=== PATIENT | female | born 1955 | race Caucasian/White ===

== ENCOUNTER 2020-07-01 12:27 | Outpatient (CLI) | payer MEDICARE, OTHER ==
[2020-07-01 13:00] LABS: Estimated GFR-MDRD - POC Greater than 90
[2020-07-01] MEDS ORDERED: Iopamidol-370 76% 500 ML 1 ML ONE (14:37)
--- NOTE | 2020-07-01 15:26 | CT ---
NECK CT WITH IV CONTRAST 07/01/20 HISTORY: Left sided vocal cord paralysis. TECHNIQUE: Axial CT imaging at 3 mm intervals from the skull base through the lung apices with IV contrast. Rogerio nal and sagittal reformatted imaging obtained. FINDINGS: There is an irregular lobulated soft tissue mass within the medial aspect of the left lung apex which measures approximately 4 cm craniocaudal dimension, 3 cm transverse dimension, and 3.2 cm in AP dime nsion. This abuts the superior aspect of the mediastinum on the left, and close proximity to the post erior aspects of the proximal left subclavian artery. In addition, there is an incompletely imaged i ll-defined infiltrating mass within the AP window. This lesion is in close proximity to the left main stem bronchus which is incompletely imaged. There is associated narrowing of the left main pulmonary artery. Partially visualized 1 cm lymph node seen anterior to the right main stem bronchus. Findings are highly concerning for bronchogenic carcinoma with metastatic disease within the mediastinum. Warren mmend further assessment with dedicated chest CT. The visualized paranasal sinuses and mastoid air cells demonstrate probable mucosal thickening of the alveolar recess right maxillary sinus. Retroantral fat, parapharyngeal fat, submandibular glands and parotid glands are unremarkable. Tonsillar pillars, epiglottis and pre-epiglottic fat, hyoid bone, t hyroid cartilage, cricoid cartilage appear unremarkable. Multiple tiny hypodensities are noted within the thyroid gland bilaterally. There is a medialized vocal cord on the left consistent with the patient's history of left sided foca l cord paralysis. There is an enlarged lymph node posterior to the head of the clavicle on the left measuring 1.4 cm sinclair spicious for metastatic lymphadenopathy. An expansile lytic lesion is seen involving the anterolateral aspect of the right second rib, only pa rtially visualized on this exam, measuring at least 2.7 cm in craniocaudal dimension. Irregular mass in the AP window measures approximately 2.1 x 3.2 cm. IMPRESSION: CT evidence of left vocal cord paralysis. Irregular soft tissue mass within the left upper lobe/left lung apex extending into the region of the left hilum highly suspicious for bronchogenic carcinoma. L ymphadenopathy posterior to the head of the left clavicle as well as mediastinal adenopathy suggests metastatic disease, most prominent in the AP window explaining the left vocal cord paralysis. There i s also evidence of osseous metastatic disease involving the right second rib. These results were sent to Dr. Barrington Paz via [employer], 1:45 p.m. on 07/01/20. Code TATI and Code T
== END 2020-07-01 12:28 | disposition home or self-care (01) ==
LOC: BICCT 12:27
PROVIDERS: ATTEND Otolaryngology Plastic Surgery within the Head & Neck
DX: J38.00 Paralysis of vocal cords and larynx, unspecified (principal); J98.4 Other disorders of lung; R59.0 Localized enlarged lymph nodes
CPT/HCPCS: 70491; 82565; Q9967

== ENCOUNTER 2020-07-22 12:02 | Outpatient (CLI) | payer MEDICARE, OTHER ==
--- NOTE | 2020-07-22 15:13 | PET ---
EXAM: PET/CT HISTORY: Malignant neoplasm of the left upper lobe and left bronchus TECHNIQUE: PET scanning with CT attenuation correction was performed from the base of the brain to the proximal thighs following the intravenous administration of 12.5 millicuries [id number]. COMPARISON: CT neck soft tissues with contrast dated July 01, 2020 FINDINGS: Biodistribution:The biodistribution for the exam appears acceptable. Head and neck: There is appropriate background activity within the brain. There is a hypermetabolic l eft supraclavicular lymph node with a peak SUV uptake of 15.05. Thorax: There is a hypermetabolic spiculated mass within the left lung apex with a peak activity of 1 0.69. There is a hypermetabolic left suprahilar mass with a peak activity at 8.03. There is a hypermetabolic left hilar lymph node with a peak activity of 5.74. There is a left peribronchial lymp h node with a peak activity 9.03. There is an hypermetabolic AP window lymph node with a peak activity of 5.9. There is hypermetabolic activity seen involving the anterior and posterior pleura li tejas related to pleural-based metastatic disease. The most prominent area of increased hypermetabolic activity is seen posterior to the left lower lobe with a peak activity of 5.01. There is a hypermetabolic epicardial lymph node versus pleural-based metastatic lesion, adjacent to the left ventricular apex, with a peak activity of 5.37. There is subsegmental volume loss within the lef t lung largely related to the complex small left pleural effusion. No hypermetabolic pulmonary nodule or pleural effusion is evident within the right hemithorax. Abdomen and pelvis: There is expected background activity within the GI and systems. No hypermetab olic mass, lymphadenopathy or ascites is present. Osseous structures and skin: There is a large hypermetabolic lytic lesion involving the left iliac wi ng measuring 6.3 cm with a peak activity of 12.19. There is a small hypermetabolic lytic lesion involving the lateral cortex of the proximal right femur with a peak activity of 11.49. There are add itional hypermetabolic osseous metastatic lesions involving the left anterior fourth rib, left posterior fifth rib, right posterior ninth rib and lateral right second rib. Small hypermetabolic foc us is seen involving the anterior aspect of the right iliac crest with a peak activity of 5.07. IMPRESSION: Abnormal PET/CT 1. Hypermetabolic left upper lobe lung mass with an additional hypermetabolic mass seen within the le ft suprahilar region consistent with malignancy. There is hypermetabolic malignant lymphadenopathy seen within the left hilum, left peribronchial region, left AP window region and left supraclavicular region. There is hypermetabolic malignant pleural thickening consistent of the left hemithorax. 2. Hypermetabolic osseous metastatic disease involving the ribs, bilateral iliac wings and proximal r ight femur
== END 2020-07-22 12:03 | disposition home or self-care (01) ==
LOC: PET 12:02
PROVIDERS: ATTEND Thoracic Surgery (Cardiothoracic Vascular Surgery)
DX: C34.12 Malignant neoplasm of upper lobe, left bronchus or lung (principal); R91.8 Other nonspecific abnormal finding of lung field; R59.1 Generalized enlarged lymph nodes; C79.51 Secondary malignant neoplasm of bone
CPT/HCPCS: 78815; A9552

== ENCOUNTER 2020-07-26 13:29 | Outpatient (CLI) | payer MEDICARE, OTHER ==
[2020-07-26 19:06] LABS: Anion Gap 17 mmol/L (10-20); BUN (Urea Nitrogen) 13 mg/dL (9.8-20.1); Calc. Creatinine Clearance 0 mL/min (70-130); Calcium 9.8 mg/dL (7.8-10.44); Carbon Dioxide 21 mmol/L (23-31); Chloride 103 mmol/L (98-107); Glucose 141 mg/dL (80-115); Sodium 137 mmol/L (136-145)
[2020-07-26 19:42] LABS: Hemoglobin 12.4 g/dL (12.0-16.0); Mean Corpuscular HGB CONC 31.8 G/DL (32.0-36.0); Mean Corpuscular Hemoglobin 26.9 PG (27.0-33.0); Mean Corpuscular Volume 84.6 fl (80.0-100.0); Platelet Count 268 10x3/uL (130-400); Red Blood Cell (RBC) Count 4.61 10x6/uL (3.90-5.20); White Blood Cell (WBC) Count 10.2 10x3/uL (4.5-11.0)
[2020-07-27 09:48] LABS: SARS-CoV-2 MS2 Positive; SARS-CoV-2 N Gene Negative; SARS-CoV-2 S Gene Negative; SARS-CoV-2 by NAA Not Detected (NotDetected); SARS-CoV-2 orf1ab Negative
== END 2020-07-26 13:30 | disposition home or self-care (01) ==
LOC: LABBT 13:29
PROVIDERS: ATTEND Thoracic Surgery (Cardiothoracic Vascular Surgery)
DX: Z01.812 Encounter for preprocedural laboratory examination (principal); Z20.828 Contact with and (suspected) exposure to other viral communicable diseases; R91.8 Other nonspecific abnormal finding of lung field
CPT/HCPCS: 80048; 85027; U0003; 87635

== ENCOUNTER 2020-07-29 06:06 | Day surgery (SDC) | payer MEDICARE, OTHER ==
[2020-07-28 10:38] VITALS: BMI 32.3
[2020-07-29] MEDS ORDERED: Fentanyl 100 MCG/2 ML VIAL ONE ×2 (06:37→08:38)
[2020-07-29] MEDS ORDERED: Lidocaine 1% w/Epinephrine 1:100K 20 ML VIAL ONE (06:50)
[2020-07-29] MEDS ORDERED: Bupivacaine PF 0.5% 30 ML VIAL ONE (06:50)
[2020-07-29] MEDS ORDERED: Ondansetron PF 4 MG/2 ML Vial ONE ×2 (06:55→10:38)
[2020-07-29] MEDS ORDERED: Midazolam HCl 2 mg/2 ml Vial ONE (07:07)
[2020-07-29] MEDS ORDERED: HYDROcodone/Acetaminophen 5/325 mg Tablet ONE (09:08)
[2020-07-29] MEDS ORDERED: Dexamethasone 20 MG/5 ML VIAL ONE (10:38)
[2020-07-29] MEDS ORDERED: Ketorolac Tromethamine 30 MG/ML VIAL ONE (10:38)
[2020-07-29] MEDS ORDERED: PROPOFOL 200 MG/20 ML VIAL ONE (10:38)
[2020-07-29] MEDS ORDERED: Lidocaine 1% PF 5 ML VIAL ONE (10:38)
[2020-07-29] MEDS ORDERED: Succinylcholine 200 MG/10 ml SYRINGE FS ONE (10:38)
--- NOTE | 2020-08-02 11:48 | OP ---
DATE OF PROCEDURE: 07/29/2020 PREOPERATIVE DIAGNOSIS: Metastatic lung cancer. POSTOPERATIVE DIAGNOSIS: Metastatic lung cancer. PROCEDURE PERFORMED: Left deep scalene node excisional biopsy. ANESTHESIA: General. ESTIMATED BLOOD LOSS: Minimal. DESCRIPTION OF PROCEDURE: After adequate anesthesia had been obtained, a roll was placed under the shoulders and she was prepped and draped. Transverse incision was made above the clavicle and then dissection was carried down to the palpable mass. It was grasped and tissue dissected away from it coagulating small branches. Phrenic nerve was not specifically identified. The lymphatic drainage into the jugular vein was identified and avoided. Following removal of the mass, the platysma was reapproximated and the wound closed in layers and the patient was to be taken to the recovery room. Job ID: [id number]
== END 2020-07-29 10:05 | disposition home or self-care (01) ==
LOC: SDC 06:06
PROVIDERS: ATTEND Thoracic Surgery (Cardiothoracic Vascular Surgery)
PROC: 07B20ZX Excision of Left Neck Lymphatic, Open Approach, Diagnostic (ICD-10-PCS; principal; 2020-07-29)
DX: C34.12 Malignant neoplasm of upper lobe, left bronchus or lung (principal); C77.0 Secondary and unspecified malignant neoplasm of lymph nodes of head, face and neck; I10 Essential (primary) hypertension; Z79.899 Other long term (current) drug therapy
CPT/HCPCS: 81210; 81235; 81479; 88307; 88331; 88341; 88342; 88360; 88377; 93005; 93010; J0690; J1100; J1885; J2250; J2405; J2704; J3010; S0020

== ENCOUNTER 2021-12-21 11:32 | Inpatient (IN) | payer MEDICARE, OTHER ==
[2021-12-21] MEDS ORDERED: Ondansetron PF 4 MG/2 ML Vial ONE (12:30)
[2021-12-21 12:39] LABS: #Lymphocytes 0.9 thou/uL (1.20-3.40); #Monocytes 0.5 thou/uL (0.11-0.59); #Neutrophils 5.9 thou/uL (1.40-6.50); %Basophils 0.2 % (0.0-1.0); %Eosinophils 0.3 % (0.0-10.0); %Lymphocytes 12.4 % (21.0-51.0); %Monocytes 6.8 % (0.0-10.0); %Neutrophils 80.3 % (42.0-75.0); Hemoglobin 12.7 g/dL (12.0-16.0); Mean Corpuscular HGB CONC 33.7 g/dL (32.0-36.0); Mean Corpuscular Hemoglobin 30.8 pg (27.0-31.0); Mean Corpuscular Volume 91.3 fL (78.0-98.0); Mean Platelet Volume 7.3 fL (7.4-10.4); Platelet Count 292 thou/uL (130-400); RBC Distribution Width 15.5 % (11.5-14.5); Red Blood Cell (RBC) Count 4.13 mill/uL (4.20-5.40); White Blood Cell (WBC) Count 7.3 thou/uL (4.8-10.8)
[2021-12-21 13:08] LABS: ALT (SGPT) 20 U/L (8-55); AST (SGOT) 37 U/L (5-34); Albumin 3.7 g/dL (3.4-4.8); Alkaline Phosphatase 66 U/L (40-110); Anion Gap 14 mmol/L (10-20); BUN (Urea Nitrogen) 13 mg/dL (9.8-20.1); Bilirubin, Total 1.7 mg/dL (0.2-1.2); Calc. Creatinine Clearance 0 mL/min (70-130); Calcium 9.2 mg/dL (7.8-10.44); Carbon Dioxide 23 mmol/L (23-31); Chloride 84 mmol/L (98-107); Globulin 2.1 g/dL (2.4-3.5); Glucose 82 mg/dL (80-115); Potassium 4.4 mmol/L (3.5-5.1); Protein, Total 5.8 g/dL (5.8-8.1)
[2021-12-21 13:14] LABS: Sodium 117 mmol/L (136-145)
[2021-12-21] MEDS ORDERED: cefTRIAXone\\ROCEPHIN 1 GM VIAL ONE (14:04)
[2021-12-21] MEDS ORDERED: Morphine 4 MG/ML VIAL ONE (14:04)
[2021-12-21 14:36] LABS: Bacteria/HPF None Seen HPF (None Seen); Bilirubin Negative (Negative); Blood, Urine Negative (Negative); Clarity Clear (Clear); Glucose, Urine (Dipstick) Normal (Negative); Ketone, Urine 100 mg/dL (Negative); Leukocyte 250 Leu/uL (Negative); Nitrite Negative (Negative); Protein, Urine (Dipstick) 20 mg/dL (Neg-Trace); RBC/HPF 0-3 HPF (0-3); Specific Gravity, Urine 1.027 (1.002-1.036); Squamous Epithelial 0-3 HPF (0-3); Urobilinogen Normal mg/dL (Less than 2); WBC/HPF Greater than 50 HPF (0-3); pH, Urine 6.5 (5.0-9.0)
[2021-12-21] MEDS ORDERED: HYDROcodone/Acetaminophen 5/325 mg Tablet PO PRN (14:48)
[2021-12-21] MEDS ORDERED: Calcium Carbonate 500 MG ChewTAB PO PRN (14:48)
[2021-12-21] MEDS ORDERED: Acetaminophen 325 MG TAB PO PRN (14:48)
[2021-12-21] MEDS ORDERED: Ondansetron PF 4 MG/2 ML Vial IVP PRN (14:48)
[2021-12-21] MEDS ORDERED: hydrALAZINE 20 MG/ML VIAL SLOW IVP PRN (14:55)
[2021-12-21 15:21] VITALS: BMI 21.2
[2021-12-21 15:37] LABS: Lactic Acid 0.8 mmol/L (0.5-2.2)
[2021-12-21 15:39] LABS: Anion Gap 10 mmol/L (10-20); BUN (Urea Nitrogen) 12 mg/dL (9.8-20.1); Calc. Creatinine Clearance 71 mL/min (70-130); Calcium 7.9 mg/dL (7.8-10.44); Carbon Dioxide 25 mmol/L (23-31); Chloride 87 mmol/L (98-107); Glucose 81 mg/dL (80-115); Potassium 4.3 mmol/L (3.5-5.1)
[2021-12-21 15:50] LABS: Sodium 118 mmol/L (136-145)
[2021-12-21] MEDS ORDERED: Promethazine HCl 25 MG in Sodium Chloride 0.9% 50 ML IVPB PRN (15:59)
[2021-12-21 19:06] LABS: Anion Gap 10 mmol/L (10-20); BUN (Urea Nitrogen) 13 mg/dL (9.8-20.1); Calc. Creatinine Clearance 71 mL/min (70-130); Calcium 8.2 mg/dL (7.8-10.44); Carbon Dioxide 25 mmol/L (23-31); Chloride 87 mmol/L (98-107); Glucose 84 mg/dL (80-115); Potassium 4.4 mmol/L (3.5-5.1)
[2021-12-21 19:09] LABS: Sodium 118 mmol/L (136-145)
[2021-12-21 22:07] LABS: SARS-CoV-2 PCR by NAA Not Detected (NotDetected)
[2021-12-21] MEDS: ALPRAZolam 0.5 MG TAB PO SCH (23:20)
[2021-12-21 23:25] LABS: Anion Gap 13 mmol/L (10-20); BUN (Urea Nitrogen) 14 mg/dL (9.8-20.1); Calc. Creatinine Clearance 66 mL/min (70-130); Calcium 8.4 mg/dL (7.8-10.44); Carbon Dioxide 22 mmol/L (23-31); Chloride 88 mmol/L (98-107); Glucose 71 mg/dL (80-115); Potassium 4.4 mmol/L (3.5-5.1)
[2021-12-21 23:30] LABS: Sodium 119 mmol/L (136-145)
[2021-12-21 23:33] LABS: Potassium, Urine 70.1 mmol/L
[2021-12-22 03:29] LABS: #Lymphocytes 0.9 thou/uL (1.20-3.40); #Monocytes 0.5 thou/uL (0.11-0.59); #Neutrophils 3.7 thou/uL (1.40-6.50); %Basophils 0.1 % (0.0-1.0); %Eosinophils 0.5 % (0.0-10.0); %Lymphocytes 18.2 % (21.0-51.0); %Monocytes 9.4 % (0.0-10.0); %Neutrophils 71.8 % (42.0-75.0); Hemoglobin 12.3 g/dL (12.0-16.0); Mean Corpuscular HGB CONC 33.4 g/dL (32.0-36.0); Mean Corpuscular Hemoglobin 30.4 pg (27.0-31.0); Mean Corpuscular Volume 90.8 fL (78.0-98.0); Mean Platelet Volume 6.6 fL (7.4-10.4); Platelet Count 234 thou/uL (130-400); RBC Distribution Width 14.7 % (11.5-14.5); Red Blood Cell (RBC) Count 4.07 mill/uL (4.20-5.40); White Blood Cell (WBC) Count 5.1 thou/uL (4.8-10.8)
[2021-12-22 03:48] LABS: Anion Gap 9 mmol/L (10-20); BUN (Urea Nitrogen) 14 mg/dL (9.8-20.1); Calc. Creatinine Clearance 68 mL/min (70-130); Calcium 8.8 mg/dL (7.8-10.44); Carbon Dioxide 27 mmol/L (23-31); Chloride 92 mmol/L (98-107); Glucose 75 mg/dL (80-115); Potassium 4.4 mmol/L (3.5-5.1); Sodium 124 mmol/L (136-145)
[2021-12-22 07:50] LABS: Anion Gap 11 mmol/L (10-20); BUN (Urea Nitrogen) 12 mg/dL (9.8-20.1); Calc. Creatinine Clearance 66 mL/min (70-130); Calcium 8.4 mg/dL (7.8-10.44); Carbon Dioxide 24 mmol/L (23-31); Chloride 93 mmol/L (98-107); Glucose 78 mg/dL (80-115); Potassium 4.2 mmol/L (3.5-5.1); Sodium 124 mmol/L (136-145)
[2021-12-22] MEDS ORDERED: SELPERCATINIB PO SCH (09:00)
[2021-12-22] MEDS: Enoxaparin Sodium 40 MG/0.4 ML SYRINGE SC SCH (09:19)
[2021-12-22] MEDS ORDERED: Bisacodyl 10 MG SUPP PR SCH (12:00)
[2021-12-22] MEDS: cefTRIAXone\\ROCEPHIN 1 GM in Sodium Chloride 0.9% 100 ML IVPB SCH (13:57)
[2021-12-22 15:42] LABS: Anion Gap 11 mmol/L (10-20); BUN (Urea Nitrogen) 17 mg/dL (9.8-20.1); Calc. Creatinine Clearance 69 mL/min (70-130); Calcium 8.3 mg/dL (7.8-10.44); Carbon Dioxide 27 mmol/L (23-31); Chloride 93 mmol/L (98-107); Glucose 65 mg/dL (80-115); Potassium 4.2 mmol/L (3.5-5.1); Sodium 127 mmol/L (136-145)
[2021-12-22] MEDS: Senokot S 8.6-50 MG TAB PO SCH (16:28)
[2021-12-22] MEDS: ALPRAZolam 0.5 MG TAB PO SCH (20:23)
[2021-12-23 04:17] VITALS: BP 103/68; TEMP 97.7
[2021-12-23 08:29] LABS: Hemoglobin 12.2 g/dL (12.0-16.0); Mean Corpuscular Hemoglobin 30.1 pg (27.0-31.0); Mean Corpuscular Volume 93.9 fL (78.0-98.0); Mean Platelet Volume 6.9 fL (7.4-10.4); Platelet Count 210 thou/uL (130-400); RBC Distribution Width 14.8 % (11.5-14.5); Red Blood Cell (RBC) Count 4.04 mill/uL (4.20-5.40); White Blood Cell (WBC) Count 3.4 thou/uL (4.8-10.8)
[2021-12-23] MEDS: Enoxaparin Sodium 40 MG/0.4 ML SYRINGE SC SCH (08:29)
[2021-12-23] MEDS: Senokot S 8.6-50 MG TAB PO SCH (08:35)
[2021-12-23 08:43] LABS: Anion Gap 12 mmol/L (10-20); BUN (Urea Nitrogen) 13 mg/dL (9.8-20.1); Calc. Creatinine Clearance 73 mL/min (70-130); Calcium 8.5 mg/dL (7.8-10.44); Carbon Dioxide 24 mmol/L (23-31); Chloride 98 mmol/L (98-107); Glucose 80 mg/dL (80-115); Potassium 4.2 mmol/L (3.5-5.1); Sodium 130 mmol/L (136-145)
[2021-12-23 12:17] LABS: Band 10 % (5-11); Lymphocytes 32 % (21-51); MDiff Complete? YES; Monocytes 12 % (0-10); Neutrophil 46 % (42-75); RBC Morphology Normal
[2021-12-23] MEDS ORDERED: Potassium Chloride 20 MEQ TAB PO SCH (14:00)
[2021-12-23] MEDS: cefTRIAXone\\ROCEPHIN 1 GM in Sodium Chloride 0.9% 100 ML IVPB SCH (14:44)
== END 2021-12-23 14:26 | disposition home or self-care (01) | DRG 644 ==
LOC: ERS 11:32 → T4-B 14:32
PROVIDERS: ADMIT Internal Medicine; ATTEND Hospitalist
DX: E22.2 Syndrome of inappropriate secretion of antidiuretic hormone (principal); C34.90 Malignant neoplasm of unspecified part of unspecified bronchus or lung; Z20.822 Contact with and (suspected) exposure to COVID-19; K59.00 Constipation, unspecified; I10 Essential (primary) hypertension; R11.2 Nausea with vomiting, unspecified; T36.95XA Adverse effect of unspecified systemic antibiotic, initial encounter; Z79.899 Other long term (current) drug therapy; Z98.890 Other specified postprocedural states; Z82.49 Family history of ischemic heart disease and other diseases of the circulatory system; Z83.3 Family history of diabetes mellitus
CPT/HCPCS: 36415; 80048; 80053; 81003; 81015; 82436; 83605; 83930; 83935; 84133; 84300; 84443; 85025; 87086; 96361; 96374; 96375; J0696; J2270; J2405; J2550; J3490; U0003; U0005

== ENCOUNTER 2022-04-27 10:44 | Inpatient (IN) | payer MEDICARE, OTHER ==
[2022-04-27 11:33] LABS: #Lymphocytes 0.9 thou/uL (1.20-3.40); #Monocytes 0.4 thou/uL (0.11-0.59); #Neutrophils 6.7 thou/uL (1.40-6.50); %Basophils 0.2 % (0.0-1.0); %Eosinophils 0.2 % (0.0-10.0); %Lymphocytes 10.9 % (21.0-51.0); %Monocytes 4.9 % (0.0-10.0); %Neutrophils 83.8 % (42.0-75.0); Hemoglobin 11.4 g/dL (12.0-16.0); Mean Corpuscular HGB CONC 31.8 g/dL (32.0-36.0); Mean Corpuscular Hemoglobin 30.6 pg (27.0-31.0); Mean Corpuscular Volume 96.3 fL (78.0-98.0); Mean Platelet Volume 6.2 fL (7.4-10.4); Platelet Count 302 thou/uL (130-400); RBC Distribution Width 13.7 % (11.5-14.5); Red Blood Cell (RBC) Count 3.72 mill/uL (4.20-5.40)
[2022-04-27 11:56] LABS: ALT (SGPT) 15 U/L (8-55); AST (SGOT) 20 U/L (5-34); Albumin 2.8 g/dL (3.4-4.8); Alkaline Phosphatase 120 U/L (40-110); Anion Gap 13 mmol/L (10-20); BUN (Urea Nitrogen) 22 mg/dL (9.8-20.1); Bilirubin, Total 0.6 mg/dL (0.2-1.2); Calc. Creatinine Clearance 0 mL/min (70-130); Calcium 8.3 mg/dL (7.8-10.44); Carbon Dioxide 24 mmol/L (23-31); Chloride 102 mmol/L (98-107); Estimated GFR 78; Globulin 2.3 g/dL (2.4-3.5); Glucose 95 mg/dL (80-115); Protein, Total 5.1 g/dL (5.8-8.1); Sodium 135 mmol/L (136-145)
[2022-04-27 13:33] LABS: Bilirubin Negative (Negative); Blood, Urine 3+ (Negative); Clarity Extra Turbid (Clear); Glucose, Urine (Dipstick) Normal (Negative); Ketone, Urine Trace mg/dL (Negative); Leukocyte 500 Leu/uL (Negative); Nitrite Negative (Negative); Protein, Urine (Dipstick) 100 mg/dL (Neg-Trace); Urobilinogen Normal mg/dL (Less than 2); pH, Urine 6.5 (5.0-9.0)
[2022-04-27 13:45] LABS: WBC/HPF Greater than 50 HPF (0-3); Yeast-Budding None Seen HPF (None Seen)
[2022-04-27 13:47] LABS: Bacteria/HPF 2+ HPF (None Seen)
[2022-04-27] MEDS ORDERED: ALPRAZolam 0.5 MG TAB PO PRN (14:41)
[2022-04-27] MEDS ORDERED: Iopamidol-370 76% 500 ML 1 ML ONE (14:42)
[2022-04-27] MEDS ORDERED: Ondansetron PF 4 MG/2 ML Vial IVP PRN (14:47)
[2022-04-27] MEDS ORDERED: Acetaminophen 325 MG TAB PO PRN (14:47)
[2022-04-27] MEDS ORDERED: Ondansetron ODT 4 MG TAB PO PRN (14:47)
[2022-04-27] MEDS ORDERED: Morphine 4 MG/ML VIAL ONE (15:21)
[2022-04-27] MEDS ORDERED: Ondansetron PF 4 MG/2 ML Vial ONE (15:21)
[2022-04-27] MEDS ORDERED: Cefepime 2 GM VIAL ONE (15:21)
[2022-04-27] MEDS: cefTRIAXone\\ROCEPHIN 1 GM in Sodium Chloride 0.9% 100 ML IVPB SCH (17:13)
[2022-04-27] MEDS: Sodium Chloride 0.9% 1,000 ML IV SCH (17:14)
[2022-04-27] MEDS: HYDROcodone/Acetaminophen 5/325 mg Tablet PO PRN (18:08)
[2022-04-27] MEDS ORDERED: Morphine 2 MG/ML VIAL SLOW IVP PRN (18:39)
[2022-04-27 18:51] VITALS: BMI 16.8
[2022-04-27] MEDS: Famotidine 20 MG TAB PO SCH (20:43)
[2022-04-27] MEDS ORDERED: Amlodipine 5 MG TAB PO SCH (21:00)
[2022-04-28] MEDS: Sodium Chloride 0.9% 1,000 ML IV SCH ×2 (00:10→11:11)
[2022-04-28] MEDS: HYDROcodone/Acetaminophen 5/325 mg Tablet PO PRN ×3 (00:10→21:08)
[2022-04-28] MEDS: Senokot S 8.6-50 MG TAB PO PRN (05:54)
[2022-04-28 06:30] LABS: #Lymphocytes 1.2 thou/uL (1.20-3.40); #Monocytes 0.5 thou/uL (0.11-0.59); #Neutrophils 10.8 thou/uL (1.40-6.50); %Basophils 0.1 % (0.0-1.0); %Eosinophils 0.3 % (0.0-10.0); %Lymphocytes 9.7 % (21.0-51.0); %Monocytes 3.7 % (0.0-10.0); %Neutrophils 86.3 % (42.0-75.0); Hemoglobin 11.2 g/dL (12.0-16.0); Mean Corpuscular HGB CONC 31.8 g/dL (32.0-36.0); Mean Corpuscular Hemoglobin 30.8 pg (27.0-31.0); Mean Corpuscular Volume 96.8 fL (78.0-98.0); Mean Platelet Volume 6.3 fL (7.4-10.4); Platelet Count 360 thou/uL (130-400); RBC Distribution Width 13.9 % (11.5-14.5); Red Blood Cell (RBC) Count 3.64 mill/uL (4.20-5.40); White Blood Cell (WBC) Count 12.5 thou/uL (4.8-10.8)
[2022-04-28 06:53] LABS: ALT (SGPT) 15 U/L (8-55); AST (SGOT) 24 U/L (5-34); Albumin 2.8 g/dL (3.4-4.8); Alkaline Phosphatase 165 U/L (40-110); Anion Gap 10 mmol/L (10-20); BUN (Urea Nitrogen) 22 mg/dL (9.8-20.1); Bilirubin, Total 0.5 mg/dL (0.2-1.2); Calc. Creatinine Clearance 48 mL/min (70-130); Calcium 8.5 mg/dL (7.8-10.44); Carbon Dioxide 25 mmol/L (23-31); Chloride 103 mmol/L (98-107); Estimated GFR 78; Globulin 2.9 g/dL (2.4-3.5); Glucose 94 mg/dL (80-115); Potassium 4.3 mmol/L (3.5-5.1); Protein, Total 5.7 g/dL (5.8-8.1); Sodium 134 mmol/L (136-145)
[2022-04-28] MEDS: Losartan 25 MG TAB PO SCH (08:31)
[2022-04-28] MEDS: Enoxaparin Sodium 40 MG/0.4 ML SYRINGE SC SCH (08:31)
[2022-04-28] MEDS: Famotidine 20 MG TAB PO SCH ×2 (08:31→21:08)
[2022-04-28] MEDS: cefTRIAXone\\ROCEPHIN 1 GM in Sodium Chloride 0.9% 100 ML IVPB SCH (14:49)
[2022-04-28] MEDS: SELPERCATINIB PO SCH (21:07)
[2022-04-29] MEDS: HYDROcodone/Acetaminophen 5/325 mg Tablet PO PRN ×3 (05:48→20:19)
[2022-04-29] MEDS: Polyethylene Glycol 3350 17 GM Packet PO PRN (05:49)
[2022-04-29 07:10] LABS: #Lymphocytes 0.8 thou/uL (1.20-3.40); #Monocytes 0.4 thou/uL (0.11-0.59); #Neutrophils 7.2 thou/uL (1.40-6.50); %Basophils 0.3 % (0.0-1.0); %Eosinophils 0.3 % (0.0-10.0); %Lymphocytes 9.1 % (21.0-51.0); %Neutrophils 85.4 % (42.0-75.0); Hemoglobin 9.6 g/dL (12.0-16.0); Mean Corpuscular HGB CONC 32.7 g/dL (32.0-36.0); Mean Corpuscular Hemoglobin 31.8 pg (27.0-31.0); Platelet Count 266 thou/uL (130-400); RBC Distribution Width 13.7 % (11.5-14.5); Red Blood Cell (RBC) Count 3.01 mill/uL (4.20-5.40); White Blood Cell (WBC) Count 8.5 thou/uL (4.8-10.8)
[2022-04-29 07:29] LABS: Anion Gap 13 mmol/L (10-20); BUN (Urea Nitrogen) 25 mg/dL (9.8-20.1); Calc. Creatinine Clearance 52 mL/min (70-130); Calcium 8.1 mg/dL (7.8-10.44); Carbon Dioxide 19 mmol/L (23-31); Chloride 106 mmol/L (98-107); Estimated GFR 87; Glucose 84 mg/dL (80-115); Potassium 4.1 mmol/L (3.5-5.1); Sodium 134 mmol/L (136-145)
[2022-04-29] MEDS ORDERED: Bisacodyl 10 MG SUPP PR PRN (09:00)
[2022-04-29] MEDS: Famotidine 20 MG TAB PO SCH ×2 (09:09→20:19)
[2022-04-29] MEDS: Enoxaparin Sodium 40 MG/0.4 ML SYRINGE SC SCH (09:09)
[2022-04-29] MEDS: Losartan 25 MG TAB PO SCH ×2 (09:09→09:12)
[2022-04-29] MEDS: Saccharomyces boulardii 250 MG CAP PO SCH (09:09)
[2022-04-29] MEDS: SELPERCATINIB PO SCH ×2 (09:10→20:20)
[2022-04-29] MEDS: cefTRIAXone\\ROCEPHIN 1 GM in Sodium Chloride 0.9% 100 ML IVPB SCH (15:22)
[2022-04-29] MEDS ORDERED: VANCOMYCIN 1.25 GM/250 ML BAG 1.25 GM in Premix Bag 1 BAG IVPB SCH (15:30)
[2022-04-30] MEDS: HYDROcodone/Acetaminophen 5/325 mg Tablet PO PRN ×3 (00:19→20:34)
[2022-04-30 08:03] LABS: #Lymphocytes 0.9 thou/uL (1.20-3.40); #Monocytes 0.4 thou/uL (0.11-0.59); #Neutrophils 7.5 thou/uL (1.40-6.50); %Basophils 0.1 % (0.0-1.0); %Eosinophils 0.4 % (0.0-10.0); %Lymphocytes 10.5 % (21.0-51.0); %Monocytes 4.8 % (0.0-10.0); %Neutrophils 84.3 % (42.0-75.0); Mean Corpuscular HGB CONC 31.4 g/dL (32.0-36.0); Mean Corpuscular Hemoglobin 30.4 pg (27.0-31.0); Mean Corpuscular Volume 96.8 fL (78.0-98.0); Mean Platelet Volume 6.1 fL (7.4-10.4); Platelet Count 323 thou/uL (130-400); RBC Distribution Width 13.7 % (11.5-14.5); Red Blood Cell (RBC) Count 3.29 mill/uL (4.20-5.40); White Blood Cell (WBC) Count 8.9 thou/uL (4.8-10.8)
[2022-04-30] MEDS: Saccharomyces boulardii 250 MG CAP PO SCH (08:17)
[2022-04-30] MEDS: Polyethylene Glycol 3350 17 GM Packet PO PRN (08:17)
[2022-04-30 08:18] LABS: Anion Gap 11 mmol/L (10-20); BUN (Urea Nitrogen) 18 mg/dL (9.8-20.1); Calc. Creatinine Clearance 57 mL/min (70-130); Calcium 8.2 mg/dL (7.8-10.44); Carbon Dioxide 23 mmol/L (23-31); Chloride 106 mmol/L (98-107); Estimated GFR 95; Glucose 85 mg/dL (80-115); Potassium 4.4 mmol/L (3.5-5.1); Sodium 136 mmol/L (136-145)
[2022-04-30] MEDS: Enoxaparin Sodium 40 MG/0.4 ML SYRINGE SC SCH (08:18)
[2022-04-30] MEDS: Famotidine 20 MG TAB PO SCH ×2 (08:18→20:31)
[2022-04-30] MEDS: SELPERCATINIB PO SCH ×2 (08:19→20:30)
[2022-04-30] MEDS ORDERED: Linezolid 600 MG TAB PO SCH (09:00)
[2022-04-30] MEDS: ALPRAZolam 0.25 MG TAB PO PRN (09:36)
[2022-04-30] MEDS: Losartan 25 MG TAB PO SCH (12:14)
[2022-04-30] MEDS: Senokot S 8.6-50 MG TAB PO PRN (12:15)
[2022-04-30] MEDS ORDERED: Vancomycin 1 GM in Premix Bag 1 BAG IVPB SCH (16:00)
[2022-05-01] MEDS: HYDROcodone/Acetaminophen 5/325 mg Tablet PO PRN ×3 (03:10→22:05)
[2022-05-01 06:13] LABS: #Lymphocytes 0.8 thou/uL (1.20-3.40); #Monocytes 0.5 thou/uL (0.11-0.59); #Neutrophils 6.6 thou/uL (1.40-6.50); %Basophils 0.1 % (0.0-1.0); %Eosinophils 0.3 % (0.0-10.0); %Lymphocytes 10.5 % (21.0-51.0); %Neutrophils 83.1 % (42.0-75.0); Hemoglobin 9.7 g/dL (12.0-16.0); Mean Corpuscular HGB CONC 31.6 g/dL (32.0-36.0); Mean Corpuscular Hemoglobin 30.6 pg (27.0-31.0); Mean Platelet Volume 6.3 fL (7.4-10.4); Platelet Count 302 thou/uL (130-400); RBC Distribution Width 13.6 % (11.5-14.5); Red Blood Cell (RBC) Count 3.16 mill/uL (4.20-5.40)
[2022-05-01 06:30] LABS: Anion Gap 14 mmol/L (10-20); BUN (Urea Nitrogen) 18 mg/dL (9.8-20.1); Calc. Creatinine Clearance 56 mL/min (70-130); Calcium 8.4 mg/dL (7.8-10.44); Carbon Dioxide 20 mmol/L (23-31); Chloride 104 mmol/L (98-107); Estimated GFR 94; Glucose 84 mg/dL (80-115); Potassium 4.2 mmol/L (3.5-5.1); Sodium 134 mmol/L (136-145)
[2022-05-01] MEDS: Saccharomyces boulardii 250 MG CAP PO SCH (08:27)
[2022-05-01] MEDS: Famotidine 20 MG TAB PO SCH ×2 (08:27→21:07)
[2022-05-01] MEDS: Enoxaparin Sodium 40 MG/0.4 ML SYRINGE SC SCH (08:28)
[2022-05-01] MEDS: Losartan 25 MG TAB PO SCH (08:29)
[2022-05-01] MEDS: ALPRAZolam 0.25 MG TAB PO PRN (08:29)
[2022-05-01] MEDS: SELPERCATINIB PO SCH ×2 (08:29→21:08)
[2022-05-01] MEDS: Vancomycin 1 GM in Premix Bag 1 BAG IVPB SCH (17:06)
[2022-05-02] MEDS: Vancomycin 1 GM in Premix Bag 1 BAG IVPB SCH ×2 (04:55→16:24)
[2022-05-02] MEDS: HYDROcodone/Acetaminophen 5/325 mg Tablet PO PRN ×2 (05:18→13:27)
[2022-05-02 06:59] LABS: #Lymphocytes 0.8 thou/uL (1.20-3.40); #Monocytes 0.3 thou/uL (0.11-0.59); #Neutrophils 4.4 thou/uL (1.40-6.50); %Basophils 0.2 % (0.0-1.0); %Eosinophils 0.4 % (0.0-10.0); %Lymphocytes 15.1 % (21.0-51.0); %Monocytes 5.4 % (0.0-10.0); %Neutrophils 78.9 % (42.0-75.0); Mean Corpuscular HGB CONC 31.2 g/dL (32.0-36.0); Mean Corpuscular Hemoglobin 30.1 pg (27.0-31.0); Mean Corpuscular Volume 96.5 fL (78.0-98.0); Mean Platelet Volume 6.4 fL (7.4-10.4); Platelet Count 324 thou/uL (130-400); RBC Distribution Width 13.6 % (11.5-14.5); Red Blood Cell (RBC) Count 2.98 mill/uL (4.20-5.40); White Blood Cell (WBC) Count 5.6 thou/uL (4.8-10.8)
[2022-05-02 07:14] LABS: Anion Gap 13 mmol/L (10-20); BUN (Urea Nitrogen) 14 mg/dL (9.8-20.1); Calc. Creatinine Clearance 58 mL/min (70-130); Calcium 8.3 mg/dL (7.8-10.44); Carbon Dioxide 22 mmol/L (23-31); Chloride 105 mmol/L (98-107); Estimated GFR 95; Glucose 89 mg/dL (80-115); Potassium 4.2 mmol/L (3.5-5.1); Sodium 136 mmol/L (136-145)
[2022-05-02 07:50] VITALS: BP 101/64; TEMP 98.1
[2022-05-02] MEDS: Losartan 25 MG TAB PO SCH (09:06)
[2022-05-02] MEDS: Famotidine 20 MG TAB PO SCH (09:07)
[2022-05-02] MEDS: Saccharomyces boulardii 250 MG CAP PO SCH (09:07)
[2022-05-02] MEDS: ALPRAZolam 0.25 MG TAB PO PRN (09:07)
[2022-05-02] MEDS: SELPERCATINIB PO SCH (09:08)
[2022-05-02] MEDS: Enoxaparin Sodium 40 MG/0.4 ML SYRINGE SC SCH (09:08)
== END 2022-05-02 17:44 | disposition home or self-care (01) | DRG 689 ==
LOC: SUATTDRO 10:44 → ERS 10:44 → T4-B 14:58
PROVIDERS: ADMIT Internal Medicine; ATTEND Internal Medicine
DX: N13.6 Pyonephrosis (principal); E43 Unspecified severe protein-calorie malnutrition; E87.1 Hypo-osmolality and hyponatremia; J90 Pleural effusion, not elsewhere classified; Z68.1 Body mass index [BMI] 19.9 or less, adult; C34.90 Malignant neoplasm of unspecified part of unspecified bronchus or lung; C79.51 Secondary malignant neoplasm of bone; C79.89 Secondary malignant neoplasm of other specified sites; Z66 Do not resuscitate; Z20.822 Contact with and (suspected) exposure to COVID-19; D64.9 Anemia, unspecified; F41.9 Anxiety disorder, unspecified; K59.00 Constipation, unspecified; E78.5 Hyperlipidemia, unspecified; I10 Essential (primary) hypertension; N81.4 Uterovaginal prolapse, unspecified; K52.9 Noninfective gastroenteritis and colitis, unspecified; Z79.899 Other long term (current) drug therapy; Z88.8 Allergy status to other drugs, medicaments and biological substances; Z88.2 Allergy status to sulfonamides; Z88.1 Allergy status to other antibiotic agents; Z87.440 Personal history of urinary (tract) infections
CPT/HCPCS: 36415; 74177; 80048; 80053; 80202; 81003; 81015; 83605; 83735; 84484; 85025; 87077; 87086; 87186; 93005; 96365; 96375; J0692; J0696; J1650; J2270; J2405; J3370; J3490; J7050; Q9967; U0003; U0005